=== PATIENT | female | born 1980 | race Caucasian/White ===

== ENCOUNTER 2024-01-01 17:45 | Emergency (ER) | payer SELFPAY ==
[~2024-01-01] VITALS: Ht 177.8 cm; Wt 122.7 kg
[~2024-01-01 17:45] MED LIST: LISI-893 PO
[2024-01-01] MEDS: LIDOCAINE 1% 10 ML VIAL SQ ONE (18:53)
[2024-01-01] MEDS: CEPHALEXIN MONOHYDRATE 500 MG CAPSULE PO ONE (18:53)
[2024-01-01] MEDS ORDERED: CEPH-558 PO (20:08)
[2024-01-01 20:36] VITALS: BP 129/80; PULSE 76; RESP 16; TEMP 98.3
== END 2024-01-01 21:05 | disposition home or self-care (01) ==
LOC: EMS 17:49
DX: L02.212 Cutaneous abscess of back [any part, except buttock and flank] (principal); I10 Essential (primary) hypertension; F12.90 Cannabis use, unspecified, uncomplicated; Z98.890 Other specified postprocedural states
CPT/HCPCS: 99283; 10060; J3490